=== PATIENT | male | born 1970 | race Caucasian/White ===

== ENCOUNTER 2016-08-04 16:46 | Observation (INO) | payer OTHER ==
--- NOTE | ~2016-08-04 | OP ---
Record Of Operation [facility] [address] [place]. [address] NAME: BERT DAMON : 66 STATUS : ADM Sangeetha PAT#: [id number] AGE: 45 ADM/REG DATE : 08/04/16 MR#: [id number] REPORT SERV DATE: 08/05/16 DICTATED BY: KELBY BARRETT DATE: 08/05/16 REPORT STATUS : Draft TRANSCRIBED BY: SHIRA DATE: 08/05/16 DATE OF PROCEDURE: 08/05/2016 CARDIAC CATHETERIZATION REPORT INDICATION FOR THIS PROCEDURE: Acute coronary syndrome. PROCEDURE IN DETAIL: The patient was prepped and draped in the usual sterile fashion. Adequate anesthesia was obtained over the right femoral vessels using lidocaine infiltration. Using Seldinger technique, a 6-Bolivian sheath was placed in the right femoral artery. A 6 FL4 coronary catheter was advanced to the left coronary ostium. Left coronary artery injections were performed in multiple views. Left coronary catheter was then exchanged for a 6 FR4 coronary catheter which was advanced to the right coronary ostium. The right coronary injections were then performed in the TURKMEN and CORDOVA views. The right coronary catheter was then exchanged for a 6-Bolivian pigtail catheter which was advanced into the left ventricular cavity. Pressures were measured across the aortic valve and the left ventricular angiogram was obtained in the CORDOVA projection. Pigtail catheter was removed over a guidewire and sheath was left in place. There were no apparent complications. TOTAL CONTRAST USED: 100 mL. TOTAL RADIATION EXPOSURE: 238 mGy. No significant blood loss occurred. RESULTS: 1. Pressures: Left ventricular end-diastolic pressure was 8 mmHg and no gradient was present across the aortic valve. 2. Left ventricular angiogram: The left ventricle contracted normally with an estimated ejection fraction of 70%. 3. Coronary arteriograms: Left main coronary artery is normal. Left anterior descending coronary artery is normal. Left circumflex coronary artery is normal. The right coronary artery is a dominant vessel which was also normal. IMPRESSION: 1. Normal coronary arteries. 2. Normal left ventricular function. MILES/SHIRA Kelby Barrett M.D., F.A.C.C. / [id number] Record Of Operation [facility] [address] [place]. [address] NAME: BERT DAMON : 66 STATUS : ADM Sangeetha PAT#: [id number] AGE: 45 ADM/REG DATE : 08/04/16 MR#: [id number] REPORT SERV DATE: 08/05/16 DICTATED BY: KELBY BARRETT DATE: 08/05/16 REPORT STATUS : Draft TRANSCRIBED BY: SHIRA DATE: 08/05/16 CC: Kelby Barrett M.D., Kye
--- NOTE | ~2016-08-04 | PRECARD ---
[facility] [address] [facility] [place]. [address] NAME: BERT DAMON : 66 STATUS : ADM Sangeetha PAT#: [id number] AGE: 45 ADM/REG DATE : 08/04/16 MR#: [id number] REPORT SERV DATE: 08/05/16 DICTATED BY: KELBY SANDY DATE: 08/05/16 REPORT STATUS : Draft TRANSCRIBED BY: SHIRA DATE: 08/05/16 DATE OF ADMISSION: 08/04/2016 HISTORY OF PRESENT ILLNESS: The patient is a 45-year-old white male, who presented to the emergency room with several days of oppressive substernal chest discomfort radiating into his left arm. This discomfort is not necessarily exertional. He also has some "sharp" chest pains as well. He has a strong family history of premature coronary disease and has a history of hyperlipidemia. The patient is on no medications at this time. Cardiac enzymes are negative and EKG shows no acute changes. 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 PAST MEDICAL HISTORY: Remarkable for back surgery and hyperlipidemia. SOCIAL HISTORY: The patient is an ex-smoker. FAMILY HISTORY: Positive for coronary disease (father). REVIEW OF SYSTEMS: The patient denies cough, wheeze, sputum production, vomiting, diarrhea, or dysuria. PHYSICAL EXAMINATION: VITAL SIGNS: Blood pressure is 112/76, heart rate is 70 and regular, respirations 16 and unlabored. HEENT: Unremarkable. NECK: Shows no jugular venous distention with good carotid upstroke. CHEST: Clear. CARDIOVASCULAR: PMI is not displaced. S1 is normal. S2 is narrowly split. No gallop is present. ABDOMEN: Soft, nontender with normal bowel sounds. EXTREMITIES: Show no cyanosis, clubbing, or edema. SKIN: Warm and dry with no pallor or icterus. NEURO/PSYCH: The patient is oriented x3 with appropriate affect. LABORATORY DATA: Potassium is 4.3, BUN 17, creatinine 1.13. Hematocrit is 42. Troponin is less than 0.02. EKG shows sinus rhythm, is within normal limits IMPRESSION: Acute coronary syndrome. PLAN: Proceed with cardiac catheterization and possible PCI. MILES/SHIRA Kelby Sandy M.D., [facility] [address] [address] NAME: BERT DAMON : 66 STATUS : ADM Sangeetha PAT#: [id number] AGE: 45 ADM/REG DATE : 08/04/16 MR#: [id number] REPORT SERV DATE: 08/05/16 DICTATED BY: KELBY SANDY DATE: 08/05/16 REPORT STATUS : Draft TRANSCRIBED BY: SHIRA DATE: 08/05/16 / [id number] CC: Kelby Sandy M.D., Kye
[2016-08-04 17:11] LABS: BASOPHILS 0.8 %; BASOPHILS ABSOLUTE 0.07 10/3/uL (0.0-0.16); EOSINOPHILS 9.4 %; ER CBC TAT 0 Hrs 05 Mins; IMMATURE GRANULOCYTES 0.1 %; IMMATURE GRANULOCYTES ABSOLUTE 0.01 10/3/uL (0.0-0.11); LYMPHOCYTES 33.6 %; LYMPHOCYTES ABSOLUTE 2.87 10/3/uL (0.67-4.30); MEAN CORPUS HGB CONC 35.7 g/dL (32.0-36.0); MEAN CORPUSCULAR HEMOGLOB 31.4 pg (26.0-34.0); MEAN CORPUSCULAR VOLUME 87.9 fL (80-100); MEAN PLATELET VOLUME 9.7 fL (9.2-13.0); MONOCYTES 3.6 %; MONOCYTES ABSOLUTE 0.31 10/3/uL (0.21-1.20); NEUTROPHILS 52.5 %; NEUTROPHILS ABSOLUTE 4.49 10/3/uL (2.02-8.40); PLATELET COUNT 344 10/3/uL (150-400); RED CELL COUNT 4.78 10/6/uL (4.7-6.1); WHITE BLOOD CELLS 8.6 10/3/uL (4.5-10.5)
[2016-08-04 17:13] LABS: MANUAL DIFF NO %
[2016-08-04 17:23] LABS: PROTIME (NOT ORD) 13.1 SEC (12.0-14.5)
[2016-08-04 17:28] LABS: BUN (BLOOD UREA NITROGEN) 17 MG/DL (6-23); CALCIUM, SERUM 9.1 MG/DL (8.5-10.4); CHEST PAIN PROFILE TAT 0 Hrs 22 Mins; CHLORIDE, SERUM 100 MMOL/L (96-112); CO2 (CARBON DIOXIDE) 31 MMOL/L (24-34); CREATININE 1.13 MG/DL (0.70-1.30); GFR AFRICAN AMERICAN 89 ML/MIN (>=60); GFR NON AFRICAN AMERICAN 77 ML/MIN (>=60); GLUCOSE, SERUM 93 MG/DL (60-99); POTASSIUM, SERUM 4.3 MMOL/L (3.5-5.3); SODIUM, SERUM 140 MMOL/L (135-148); TROPONIN I <0.02 NG/ML (<0.05)
[2016-08-04] MEDS ORDERED: ASAB PO (22:48)
[2016-08-04] MEDS ORDERED: AMOXIL PO (22:50)
[2016-08-05 03:46] LABS: BASOPHILS ABSOLUTE 0.09 10/3/uL (0.0-0.16); EOSINOPHILS 9.5 %; EOSINOPHILS ABSOLUTE 0.87 10/3/uL (0.0-0.53); HEMATOCRIT 40.2 % (40.0-51.0); HEMOGLOBIN 14.4 g/dL (13.6-17.8); IMMATURE GRANULOCYTES 0.3 %; IMMATURE GRANULOCYTES ABSOLUTE 0.03 10/3/uL (0.0-0.11); LYMPHOCYTES 40.4 %; LYMPHOCYTES ABSOLUTE 3.71 10/3/uL (0.67-4.30); MEAN CORPUS HGB CONC 35.8 g/dL (32.0-36.0); MEAN CORPUSCULAR HEMOGLOB 31.4 pg (26.0-34.0); MEAN CORPUSCULAR VOLUME 87.6 fL (80-100); MONOCYTES 4.6 %; MONOCYTES ABSOLUTE 0.42 10/3/uL (0.21-1.20); NEUTROPHILS 44.2 %; NEUTROPHILS ABSOLUTE 4.07 10/3/uL (2.02-8.40); PLATELET COUNT 343 10/3/uL (150-400); RBC DISTRIBUTION WIDTH 13.1 % (12.0-16.0); RED CELL COUNT 4.59 10/6/uL (4.7-6.1); WHITE BLOOD CELLS 9.2 10/3/uL (4.5-10.5)
[2016-08-05 03:51] LABS: MANUAL DIFF NO %
[2016-08-05 04:02] LABS: CHOL/HDL RATIO(NOT ORDER) 7.4 (0-5); CHOLESTEROL 251 MG/DL (< 200); HDL CHOLESTEROL 34 MG/DL (> 39); NON-HDL CHOLESTEROL 217 MG/DL (< 160); TRIGLYCERIDE 886 MG/DL (< 150); TROPONIN I <0.02 NG/ML (<0.05)
[2016-08-05 04:04] LABS: SGPT(ALT) 37 U/L (5-65)
[2016-08-05 08:55] LABS: CHOL/HDL RATIO(NOT ORDER) 6.8 (0-5)
== END 2016-08-05 19:30 | disposition home or self-care (01) ==
LOC: ER 16:46 → CDU1 22:10
PROVIDERS: Emergency Medicine; Internal Medicine Interventional Cardiology
PROC: 4A023N7 Measurement of Cardiac Sampling and Pressure, Left Heart, Percutaneous Approach (ICD-10-PCS; principal; 2016-08-04)
PROC: B2111ZZ Fluoroscopy of Multiple Coronary Arteries using Low Osmolar Contrast (ICD-10-PCS; 2016-08-04)
DX: I24.9 Acute ischemic heart disease, unspecified (principal); R07.9 Chest pain, unspecified; E78.5 Hyperlipidemia, unspecified; Z87.891 Personal history of nicotine dependence; E11.9 Type 2 diabetes mellitus without complications; F41.9 Anxiety disorder, unspecified; Z79.82 Long term (current) use of aspirin
CPT/HCPCS: 71020; 80048; 80061; 83735; 84460; 84484; 85025; 85347; 85610; 85730; 93005; 93458; 96372; 99285; A9270-GY; C1769; G0378; J2250; J3010; Q9967